=== PATIENT | male | born 1995 | race Caucasian/White ===

== ENCOUNTER 2022-12-06 08:32 | Outpatient (CLI) | payer OTHER, SELFPAY ==
--- NOTE | 2022-12-06 08:55 | MR_ITS ---
WS: [id number] MRI LUMBAR SPINE NONCONTRAST TECHNIQUE: Sagittal T1, T2 and STIR imaging. Axial T1 and T2 imaging. CLINICAL INFORMATION: RIGHT LUMBAR PAIN COMPARISON: None. FINDINGS: Mild lumbar curve. No acute compression. No high-grade central canal stenosis. Reversal normal cervic al lordosis. Mild central canal stenosis in the cervical spine road crossing guard imaging at C5-C7 with tiny disc protrusions. L1-L2: Mild facet arthropathy. Spinal canal and foramen are patent. L2-L3: Minimal annular bulging. Mild facet arthropathy. Spinal canal and foramen are patent. L3-L4: Mild annular bulging. Mild facet arthropathy. Mild LEFT and no RIGHT foraminal narrowing. L4-L5: Mild annular bulging with slight narrowing of the RIGHT subarticular recess. Foramen are paten t. Mild facet arthropathy. L5-S1: Mild annular bulging with slight contact of the traversing S1 nerve roots. Spinal canal and fo ramen are patent. Mild facet arthropathy. Visualized pelvic bony structures: Normal. Paravertebral soft tissues: Normal. MR/MR lumbar spine wo con* [id number] IMPRESSION: 1. Mild lumbar curve. No acute compression. No high-grade central canal stenos is. 2. Mild annular bulging L4-L5 with slight impingement RIGHT subarticular reces s and traversing RIGHT L5 nerve root. Recommend correlation with RIGHT L5 nerve root symptoms. 3. Mild annular bulging L5-S1 with slight contact of the traversing RIGHT grea ter than LEFT S1 nerve roots. 4. Mild LEFT L3-L4 foraminal narrowing. 5. Mild facet arthropathy L3-L5.
== END 2022-12-06 08:33 | disposition home or self-care (01) ==
PROVIDERS: PCP Family Medicine; Visit Provider Physical Medicine & Rehabilitation
DX: M47.896 Other spondylosis, lumbar region (principal); M51.27 Other intervertebral disc displacement, lumbosacral region
CPT/HCPCS: 72148

== ENCOUNTER 2024-05-03 02:53 | Emergency (ER) | payer SELFPAY ==
[2024-05-03] VITALS (7 sets, daily range): BP systolic 112–128; BP diastolic 58–71; PULSE 77–92; RESP 16–18; TEMP 36.9; O2SAT 97–100; BMI 25.1
--- NOTE | 2024-05-03 03:04 | USR_ITS ---
PROCEDURE INFORMATION: Exam: US Scrotum and US Duplex Artery and Vein, Scrotum, Complete Exam date and time: 05/03/2024 4:13 AM Age: 29 years old Clinical indication: Scrotum pain; Additional info: Testicle pain. History of epididymitis recently, on antibiotics for 2 weeks. Increasing pain over the last day. TECHNIQUE: Imaging protocol: Real-time ultrasound of the scrotum. Real-time duplex ultrasound scan of the arterial and venous flow of the scrotum with B-mode, color Doppler flow and spectral waveform analysis. Complete exam. Duplex exam was performed to evaluate for torsion and other vascular conditions. COMPARISON: No relevant prior studies available. FINDINGS: Right: The right testicle measures 41 x 26 x 27 mm, estimated volume 14.9 cc. No visible intratesticular mass. Duplex Doppler evaluation, with color flow and spectral waveform analysis, demonstrates intratesticular arterial and venous blood flow. Resistance index in the right testicle is 0.58. The right epididymis is normal in size and appearance. There is no significant right scrotal fluid. Left: The left testicle measures 37 x 23 x 26 mm, estimated volume 11.6 cc. No visible intratesticular mass. Duplex Doppler evaluation, with color flow and spectral waveform analysis, demonstrates intratesticular arterial and venous blood flow. Resistance index in the left testicle is 0.42. Possibly some thickening of the wall of the left epididymis. However, overall of the left epididymis does not appear significantly enlarged. The findings are nonspecific, but could represent sequela of recent epididymitis. There is no significantly increased blood flow to strongly suggest active epididymitis at this time. Clinical correlation and appropriate follow-up recommended. There is a small amount of somewhat echogenic left scrotal fluid. US/US scrotum [id number] IMPRESSION: 1. No evidence for torsion by Doppler ultrasound. 2. Appearance of the left epididymis which may be related to sequela of recent epididymitis. No current sonographic findings to strongly suggest active epididymitis, see above discussion. 3. Small left hydrocele. 4. Other details discussed above.
--- NOTE | 2024-05-03 03:06 | W.ED.MALEGU ---
HPI - Male Genitourinary General: Chief complaint: Urogenital-Male Stated complaint: severe left testicle pain Time Seen by Provider: 05/03/24 02:54 Source: patient Mode of arrival: ambulatory Limitations: no limitations History of Present Illness: 29-year-old male states he has had left testicle pain he states he was diagnosed with epididymitis 2 weeks ago he was placed on Bactrim states is improving he started having pain again tonight in his left testicle states is a sharp pain rates it a 7 out of 10 denies any vomiting or diarrhea has had some slight dysuria Associated symptoms: Deny dysuria, nausea or vomiting Related Data Previous Rx's Medication Instructions Recorded methocarbamol 750 mg tablet 750 mg PO Q8H PRN back pain #10 10/13/22 tabs doxycycline hyclate 100 mg tablet 100 mg PO BID 7 days #14 tabs 05/03/24 hydrocodone 5 mg-acetaminophen 325 1 tab PO Q6H PRN pain #14 tabs 05/03/24 mg tablet Allergies Allergy/AdvReac Type Severity Reaction Status Date / Time amoxicillin Allergy Unknown Verified 05/03/24 03:06 Penicillins Allergy Unknown Verified 05/03/24 03:06 tramadol Allergy ALGY-Rash Verified 05/03/24 03:06 Review of Systems Const: Denies: fever(s), chills, body aches or change in appetite ENMT: Denies: throat pain or dental pain Card: Denies: chest pain Resp: Denies: dyspnea GI: Denies: abdominal pain, nausea, vomiting or diarrhea : Reports: testicular pain; Denies: dysuria Musc: Denies: neck pain or back pain Skin/Breast: Denies: rash Neuro: Denies: headache(s) Physical Exam Const: COMMON NORMALS: no acute distress, patient oriented x3 and healthy appearing HENMT: COMMON NORMALS: normocephalic and atraumatic HEAD & SCALP: normocephalic and atraumatic Eye: COMMON NORMALS: conjunctivae normal CONJUNCTIVA: Yes conjunctivae normal Neck/C-Spine: COMMON NORMALS: full ROM and supple Chest: COMMONS NORMALS: normal inspection of the chest Resp: COMMON NORMALS: normal respiratory effort Cardio: COMMON NORMALS: regular rate RATE: regular rate GI: COMMON NORMALS: Normal to inspection, nondistended, normoactive bowel sounds present, Soft to palpation, non-tender and no masses PALPATION: Yes Soft to palpation : OTHER: Tenderness noted in left testicle no signs of torsion Extremity: COMMON NORMALS: normal to inspection and full ROM Neuro: COMMON NORMALS: patient oriented x3, moves all extremities and no focal motor deficits Psych: COMMON NORMALS: mental status grossly normal, Normal thought process present and cooperative THOUGHT PROCESS: Normal thought process present Skin: COMMON NORMALS: no rashes or lesions noted and no wounds GENERAL SKIN EXAM: no rashes or lesions noted Course Vital Signs: Vital signs: Vital Signs Temperature 98.5 F 05/03/24 02:58 Pulse Rate 92 05/03/24 04:43 Respiratory Rate 16 05/03/24 03:53 Blood Pressure 126/68 05/03/24 04:43 Pulse Oximetry 99 05/03/24 04:43 Oxygen Delivery Me thod Room Air 05/03/24 04:43 MDM - Male Medical Decision Making Patient presents for left testicle pain ultrasound showed a hydrocele like thickening epididymis we will start him on doxycycline and pain meds he is to follow-up with urology return if worsening. Medical Records I reviewed the patient's medical records. Lab Data I reviewed the patient's lab results. Laboratory Results Urine Color Yellow (Yellow) 05/03/24 03:04 Urine Appearance Clear (CLEAR) 05/03/24 03:04 Urine pH 5.5 (5-7) 05/03/24 03:04 Ur Specific [place] 1.003 (1.005-1.030) L 05/03/24 03:04 Urine Protein Negative (Negative) 05/03/24 03:04 Urine Glucose (UA) Negative (Normal) 05/03/24 03:04 Urine Ketones Negative (Negative) 05/03/24 03:04 Urine Blood Negative (Negative) 05/03/24 03:04 Urine Nitrate Negative (Negative) 05/03/24 03:04 Urine Bilirubin Negative (Negative) 05/03/24 03:04 Urine Urobilinogen 0.2 mg/dL (Negative) 05/03/24 03:04 Ur Leukocyte Esterase Trace (Negative) A 05/03/24 03:04 Urine RBC 0-2 /hpf (0-2) 05/03/24 03:04 Urine WBC 0-5 /hpf (0-5) 05/03/24 03:04 Ur Squamous Epith Cells 0-5 /hpf (0-5) 05/03/24 03:04 Amorphous Sediment Not Reportable 05/03/24 03:04 Urine Bacteria None seen /hpf (NONE) 05/03/24 03:04 Hyaline Casts 0-4 /lpf H 05/03/24 03:04 All radiology interpretation(s) finalized by discharge Discharge Plan Discharge Patient Disposition: Home Clinical Impression: Left testicular pain, Hydrocele Condition: Stable Prescriptions: New hydrocodone-acetaminophen 5-325 mg tablet 1 tab PO Q6H PRN (Reason: pain) Qty: 14 0RF doxycycline hyclate 100 mg tablet 100 mg PO BID 7 Days Qty: 14 0RF No Action methocarbamol 750 mg tablet 750 mg PO Q8H PRN (Reason: back pain) Qty: 10 0RF Discharge Orders: Discharge ED (Routine); Ordered 05/03/24 Ordered By: Ying Loomis Discharge Diet: Advance as tolerated Discharge Activity: Resume usual activity Patient Instructions: Hydrocele, Testicle Pain (ED) Coding Level of Care Code ED Green Promotions Specialist for Kingsley Evangelista
[2024-05-03 03:12] LABS: Bilirubin Urine Negative (Negative); Blood Urine Negative (Negative); Glucose Urine UA Negative (Normal); Ketones Urine Negative (Negative); Leukocyte Esterase Urine Trace (Negative); Nitrate Urine Negative (Negative); Protein Urine Negative (Negative); Specific Gravity, Urine 1.003 (1.005-1.030); Urine Appearance Clear (CLEAR); Urine Color Yellow (Yellow); Urobilinogen Urine 0.2 mg/dL (Negative); pH Urine 5.5 (5-7)
[2024-05-03] MEDS: HYDROcodone-acetaminophen 7.5-325 mg Tablet 1 TAB PO (03:16)
[2024-05-03 03:17] LABS: Add Urine Microscopic? YES; Bacteria Urine None Seen /hpf; Hyaline Casts Urine 0-4 /lpf; RBC Urine 0-2 /hpf (0-2); Squamous Epithelial Cell Urine 0-5 /hpf (0-5); WBC Urine 0-5 /hpf (0-5)
== END 2024-05-03 05:16 | disposition home or self-care (01) ==
PROVIDERS: Emergency Provider Emergency Medicine
DX: N50.812 Left testicular pain (principal); N43.3 Hydrocele, unspecified
CPT/HCPCS: 76870; 81001; 99284

== ENCOUNTER 2024-10-07 19:33 | Emergency (ER) | payer SELFPAY ==
[2024-10-07 19:34] VITALS: BP 113/74; PULSE 95; RESP 18; TEMP 36.8; O2SAT 99; BMI 21.2
--- NOTE | 2024-10-07 19:45 | ECG_ITS ---
[facility] Test Date: 2024-10-07 Pat Name: Luis Leach Department: Room: Gender: Male Database Marketing Specialist: : 1995 Requested By: Cruz Olguin Order Number: [id number] Reading MD: Measurements Intervals [place] Rate: 87 P: 67 [place]: 147 QRS: 87 QRSD: 109 T: 58 QT: 344 QTc: 416 Interpretive Statements SINUS RHYTHM WITH MARKED SINUS ARRHYTHMIA INTERPRETATION BASED ON A DEFAULT AGE OF 40 YEARS No previous ECG available for comparison [email or web address] [id number]
[2024-10-07 20:13] LABS: Basophils # 0.1 10^3/uL (0.0-0.1); Basophils % 0.5 %; Eosinophils # 0.2 10^3/uL (0.0-0.8); Eosinophils % 1.8 %; Hematocrit 46.9 % (37-53); Lymphocytes # 3.7 10^3/uL (0.8-4.8); Lymphocytes % 32.6 %; Mean Corpuscular HGB Conc 34.1 g/dL (30-55); Mean Corpuscular Hemoglobin 31.4 pg (27-33); Mean Platelet Volume 10.3 fL (7.4-10.4); Monocytes # 0.8 10^3/uL (0.2-0.9); Monocytes % 6.7 %; Neutrophils # 6.62 10^3/uL (1.8-7.7); Neutrophils % 58.1 %; Nucleated Red Blood Cells % 0 %; Platelet Count 236 10^3/cmm (157-399); Red Cell Distribution Width 12.2 % (12.1-15.1); White Blood Count 11.38 10^3/uL (3.29-11.43)
[2024-10-07] MEDS: sodium chloride 0.9% 1,000 ML 999 ML IV (20:14)
--- NOTE | 2024-10-07 20:14 | ED_ITS ---
HPI - Anxiety 2 General: Chief Complaint: Anxiety Stated Complaint: Anxiety Time Seen by Provider: 10/07/24 19:43 Source: patient Mode of arrival: ambulatory Limitations: no limitations History of Present Illness: Patient is a 29 y/o Male with no pertinent past medical hx who presents to the ED with complaints of anxiety for the past few weeks. Patient states he has been under a great amount of stress, which includes separation from his girlfriend, daughter recently undergoing surgery, and his ex-girlfriend having issues with DWI and continuing to drive around his daughter. He states that for weeks he has not been eating or drinking, commenting that he has only had 2 corn dogs this week. Also notes that he has not slept for the past few days. Stating he just wants something to relieve this at this time. He is denying any suicidal homicidal ideations, but does note that he has been quite depressed. He does not see a regular doctor or take any regular medications. He notes that anxiety has caused him to have constant chest pain and lower back pain, tremors, and weakness. Also comments that he has had very dark urine, and it takes a great deal of effort just to drink water. He has never been diagnosed with anxiety and does not take anything for anxiety. MD complaint: anxiety Onset (ago): week(s) Symptoms: chest pain, palpitations, sense of impending doom and muscle cramps Severity: severe Quality: constant and worsening History of similar episodes: No Provoking factors: emotional stress Associated symptoms: Deny chest pain, chills, fever(s), headache(s), nausea, palpitations or vomiting Related Data Previous Rx's ?Medication ?Instructions ?Recorded methocarbamol 750 mg tablet 750 mg PO Q8H PRN back radha n #10 10/13/22 tabs hydrocodone 5 mg-acetaminophen 325 1 tab PO Q6H PRN pa in #14 tabs 05/03/ mg tablet propranolol 20 mg tablet 20 mg PO Q8H #60 tabs Allergies Allergy/AdvReac Type Severity Reaction Status Date / Time amoxicillin Allergy Unknown Verified 10/07/24 19:42 Penicillins Allergy Unknown Verified 10/07/24 19:42 tramadol Allergy ALGY-Rash Verified 10/07/24 19:42 Review of Systems 2 General: Reports: 10 or more systems reviewed and unremarkable except in HPI and below Const: Denies: fever(s), chills or fatigue Eyes: Denies: change in vision ENMT: Denies: throat pain, ear or mastoid pain or nasal discharge Card: Denies: chest pain, palpitations, swelling of feet/ankles or lightheadedness Resp: Denies: dyspnea, productive cough or wheezing GI: Denies: abdominal pain, nausea, vomiting, diarrhea or constipation : Denies: flank pain, difficulty urinating, dysuria or urinary frequency Musc: Denies: neck pain, back pain or joint pain Skin/Breast: Denies: rash Neuro: Denies: headache(s), numbness in extremities or weakness in extremities Psych: Reports: anxiety and depression; Denies: visual hallucinations, auditory hallucinations, tactile hallucinations, suicidal ideation or homicidal ideation Physical Exam 2 Const: COMMON NORMALS: patient oriented x3, healthy appearing and alert G ENERAL APPEARANCE: anxious ORIENTATION/CONSCIOUSNESS: Yes awake OTHER: Tremulous HENMT: COMMON NORMALS: normocephalic and atraumatic HEAD & SCALP: n ormocephalic and atraumatic Eye: COMMON NORMALS: Equal, round and reactive pupils present, EOMs intact bilaterally and conjunctivae normal CONJUNCTIVA: Yes conjunctivae normal P UPIL: Yes Equal, round and reactive pupils present Neck/C-Spine: COMMON NORMALS: full ROM Resp: COMMON NORMALS: normal respiratory effort, No retractions, No use of accessory muscles and clear to auscultation bilaterally AUSCULTATION: clear to auscultation bilaterally Cardio: COMMON NORMALS: regular rhythm, S1 normal heart sound present and S2 normal heart sound present RATE: tachycardic RHYTHM: regular rhythm H EART SOUNDS: S1 normal heart sound present and S2 normal heart sound present GI: COMMON NORMALS: Soft to palpation and non-tender PALPATION: Yes Soft to palpation Back/Pelvis: COMMON NORMALS: thoracic and lumbar spine normal to inspection, no thoracic nor lumbar tenderness and thoraco-lumbar ROM normal Extremity: COMMON NORMALS: normal to inspection and full ROM Neuro: COMMON NORMALS: patient oriented x3, moves all extremities, no focal motor deficits and no sensory deficits noted SENSORIUM/ORIENTATION: Yes alert Psych: COMMON NORMALS: Normal thought process present and speech normal A PPEARANCE: Yes grossly normal ATTITUDE: Yes calm ACTIVITY/MOTOR BEHAVIOR: Yes appropriate eye contact SPEECH: Yes normal speech MOOD & AFFECT: Yes depressed mood and Yes anxious THOUGHT PROCESS: Normal thought process present THOUGHT CONTENT: Yes Normal thought content present, No Suicidality present, No Homicidality present and No Hallucination(s) present A TTENTION/CONCENTRATION: Yes attention grossly intact MEMORY/COGNITION: Yes memory grossly intact Skin: COMMON NORMALS: no rashes or lesions noted GENERAL SKIN EXAM: no rashes or lesions noted Course 2 Vital Signs: Vital signs: Vital Signs Temperature 98.3 F 10/07/24 19:34 Pulse Rate 78 10/07/24 22:38 Respiratory Rate 18 10/07/24 19:34 Blood Pressure 125/87 10/07/24 22:38 Pulse Oximetry 100 10/07/24 22:38 Oxygen Delivery Me thod Room Air 10/07/24 22:38 MDM - Anxiety Medical Decision Making Patient presenting complaining of anxiety, has been doing with a lot of stress recently. He was not suicidal homicidal with me. Labs were negative. He was given Ativan and hydroxyzine here, initially states that he was just feeling more shaky but does note later he was starting to feel better. Was also given fluids, due to there being concerns for dehydration as he states he is essentially not been eating or drinking anything the past 2 days. Also noted limited sleep. Will also give him Toradol for back pain. I spoke with Dr. Mcconnell in regards to his case, recommend propranolol at this time and outpatient follow-up with crisis center. I discussed this plan with the patient, he agrees with restarting propranolol here and prescriptions in the pharmacy. Told to return if he does have thoughts of suicidal ideations or homicidal ideations, or hallucinations. Stable for discharge at this time. Lab Data 10/07/24 20:07 10/07/24 20:07 Laboratory Results WBC 11.38 10^3/uL (3.29-11.43) 10/07/24 20:07 RBC 5.10 10^6/uL (3.85-5.65) 10/07/24 20:07 Hgb 16.00 g/dL (11.27-16.99) 10/07/24 20:07 Hct 46.9 % (37-53) 10/07/24 20:07 MCV 92.0 fl (82-101) 10/07/24 20:07 MCH 31.4 pg (27-33) 10/07/24 20:07 MCHC 34.1 g/dL (30-55) 10/07/24 20:07 RDW 12.2 % (12.1-15.1) 10/07/24 20:07 Plt Count 236 10^3/cmm (157-399) 10/07/24 20:07 MPV 10.3 fL (7.4-10.4) 10/07/24 20:07 Neut % (Auto) 58.1 % 10/07/24 20:07 Lymph % (Auto) 32.6 % 10/07/24 20:07 [place] % (Auto) 6.7 % 10/07/24 20:07 Eos % (Auto) 1.8 % 10/07/24 20:07 Baso % (Auto) 0.5 % 10/07/24 20:07 Neut # (Auto) 6.62 10^3/uL (1.8-7.7) 10/07/24 20:07 Lymph # (Auto) 3.7 10^3/uL (0.8-4.8) 10/07/24 20:07 [place] # (Auto) 0.8 10^3/uL (0.2-0.9) 10/07/24 20:07 Eos # (Auto) 0.2 10^3/uL (0.0-0.8) 10/07/24 20:07 Baso # (Auto) 0.1 10^3/uL (0.0-0.1) 10/07/24 20:07 Nucleated RBC % (auto) 0 % 10/07/24 20:07 Nucleated RBCs # 0.0 /100WBC 10/07/24 20:07 Sodium 141 mmol/L (136-145) 10/07/24 20:07 Potassium 3.7 mmol/L (3.5-5.1) 10/07/24 20:07 Chloride 102 mmol/L (98-107) 10/07/24 20:07 Carbon Dioxide 26 mmol/L (22-29) 10/07/24 20:07 Anion Gap 16.7 (5-19) 10/07/24 20:07 BUN 4 mg/dL (6-20) L 10/07/24 20:07 Creatinine 0.8 mg/dL (0.7-1.2) 10/07/24 20:07 GFR Calculation 112.8 mL/min (90-130) 10/07/24 20:07 Glucose 88 mg/dL (65-115) 10/07/24 20:07 Calculated Osmolality 288 mOsm/kg (285-295) 10/07/24 20:07 Calcium 9.2 mg/dL (8.5-10.5) 10/07/24 20:07 Total Bilirubin 0.3 mg/dL (0.15-1.2) 10/07/24 20:07 AST 11 U/L (0-40) 10/07/24 20:07 ALT 11 U/L (0-41) 10/07/24 20:07 Alkaline Phosphatase 92 U/L (40-130) 10/07/24 20:07 Total Protein 7.0 g/dL (6.6-8.7) 10/07/24 20:07 Albumin 4.3 g/dL (3.5-5.2) 10/07/24 20:07 Globulin 2.7 g/dL (1.3-4.6) 10/07/24 20:07 Urine Color Yellow (Yellow) 10/07/24 20:46 Urine Appearance Clear (CLEAR) 10/07/24 20:46 Urine pH 6.5 (5-7) 10/07/24 20:46 Ur Specific [place] 1.003 (1.005-1.030) L 10/07/24 20:46 Urine Protein Negative (Negative) 10/07/24 20:46 Urine Glucose (UA) Negative (Normal) 10/07/24 20:46 Urine Ketones Negative (Negative) 10/07/24 20:46 Urine Blood Negative (Negative) 10/07/24 20:46 Urine Nitrate Negative (Negative) 10/07/24 20:46 Urine Bilirubin Negative (Negative) 10/07/24 20:46 Urine Urobilinogen 0.2 mg/dL (Negative) 10/07/24 20:46 Ur Leukocyte Esterase 2+ (Negative) A 10/07/24 20:46 Urine RBC 0-2 /hpf (0-2) 10/07/24 20:46 Urine WBC 6-10 /hpf (0-5) 10/07/24 20:46 Ur Squamous Epith Cells 0-5 /hpf (0-5) 10/07/24 20:46 Amorphous Sediment Not Reportable 10/07/24 20:46 Urine Bacteria None seen /hpf (NONE) 10/07/24 20:46 Hyaline Casts 0-4 /lpf H 10/07/24 20:46 No radiology studies performed this visit Discharge Plan Discharge Patient Disposition: Home Clinical Impression: Acute anxiety Condition: Stable Prescriptions: New propranolol 20 mg tablet 20 mg PO Q8H Qty: 60 0RF No Action methocarbamol 750 mg tablet 750 mg PO Q8H PRN (Reason: back pain) Qty: 10 0RF hydrocodone-acetaminophen 5-325 mg tablet 1 tab PO Q6H PRN (Reason: pain) Qty: 14 0RF Discharge Orders: Discharge ED (Routine); Ordered 10/07/24 Ordered By: Cruz Pritchett Patient Instructions: Depression (ED), Anxiety (ED) Activity Restrictions/Additional Instructions: Follow-up with crisis center. You may call , or present to the crisis center at [address] [facility]. Take propranolol as prescribed. Please return with any suicidal thoughts, hallucinations, or any other major concerns. Print Language: Hungarian Coding Level of Care Code ED Mobile Architect for Kingsley Evangelista
[2024-10-07] MEDS: LORazepam 2 mg/mL INJ 1 mL IVP (20:15)
[2024-10-07] MEDS: hyDROXYzine 25 mg Capsule 50 MG PO (20:15)
[2024-10-07 20:22] VITALS: PULSE 92; O2SAT 100
[2024-10-07 20:38] LABS: Alanine Aminotransferase 11 U/L (0-41); Albumin Level 4.3 g/dL (3.5-5.2); Alkaline Phosphatase 92 U/L (40-130); Anion Gap 16.7 (5-19); Aspartate Amino Transferase 11 U/L (0-40); Blood Urea Nitrogen 4 mg/dL (6-20); Calcium 9.2 mg/dL (8.5-10.5); Carbon Dioxide 26 mmol/L (22-29); Chloride 102 mmol/L (98-107); Creatinine Clr Calc Pharmacy 137.6852; Globulin 2.7 g/dL (1.3-4.6); Glomerular Filtration Rate 112.8 mL/min (90-130); Glucose 88 mg/dL (65-115); Osmolality Calculated 288 mOsm/kg (285-295); Potassium 3.7 mmol/L (3.5-5.1); Sodium 141 mmol/L (136-145); Total Bilirubin 0.3 mg/dL (0.15-1.2)
[2024-10-07 20:54] LABS: Bilirubin Urine Negative (Negative); Blood Urine Negative (Negative); Glucose Urine UA Negative (Normal); Ketones Urine Negative (Negative); Leukocyte Esterase Urine 2+ (Negative); Nitrate Urine Negative (Negative); Protein Urine Negative (Negative); Specific Gravity, Urine 1.003 (1.005-1.030); Urine Appearance Clear (CLEAR); Urine Color Yellow (Yellow); Urobilinogen Urine 0.2 mg/dL (Negative); pH Urine 6.5 (5-7)
[2024-10-07 20:57] LABS: Add Urine Microscopic? YES; Bacteria Urine None Seen /hpf; Hyaline Casts Urine 0-4 /lpf; RBC Urine 0-2 /hpf (0-2); Squamous Epithelial Cell Urine 0-5 /hpf (0-5)
[2024-10-07 21:00] VITALS: PULSE 89; O2SAT 98
[2024-10-07] MEDS: ketorolac 30 mg/mL INJ IVP (21:26)
[2024-10-07] MEDS: propranolol 20 mg Tablet PO (21:29)
[2024-10-07 21:36] VITALS: BP 128/76; PULSE 108; O2SAT 100
--- NOTE | 2024-10-07 21:56 | PC.NURSE ---
pt given sandwich pudding and coke. has not had any emesis.
[2024-10-07 22:00] VITALS: PULSE 91; O2SAT 99
[2024-10-07 22:38] VITALS: BP 125/87; PULSE 78; O2SAT 100
== END 2024-10-07 22:57 | disposition home or self-care (01) ==
PROVIDERS: Emergency Provider Physician Assistant
DX: F41.8 Other specified anxiety disorders (principal)
CPT/HCPCS: 80053; 81001; 85025; 93005; 96361; 96374; 96375; 99284; J1885; J2060; J7030; J9999

== ENCOUNTER 2024-10-08 01:23 | Emergency (ER) | payer SELFPAY ==
[2024-10-08 01:25] VITALS: BP 113/73; PULSE 75; RESP 18; TEMP 36.8; O2SAT 100; BMI 21.2
[2024-10-08 01:38] VITALS: BP 102/69; PULSE 83; RESP 28; O2SAT 99
--- NOTE | 2024-10-08 02:36 | W.ED.GENADLT ---
HPI - General Adult General: Chief complaint: General Medical Stated complaint: allergic rxn Time Seen by Provider: 10/08/24 01:28 History of Present Illness: Patient is a 29-year-old male who presents to the emergency department for what appears to be a panic attack. He states that he is going through hard times with his girlfriend and has many stressors in his life. They makes him feel nauseated, lightheaded, and next hard to concentrate. As he talks about he is tearing up and seems that he has lost a lot of hope. He has never been diagnosed with depression but as we discussed symptoms he feels this might be what is happening. He has trouble sleeping, he is eating less, feels nauseated frequently, and sometimes feels a heaviness in his chest. He was already seen earlier today for the same constellation of symptoms and all test were within normal limits. Related Data Previous Rx's ?Medication ?Instructions ?Recorded methocarbamol 750 mg tablet 750 mg PO Q8H PRN back pain #10 10/13/22 tabs hydrocodone 5 mg-acetaminophen 325 1 tab PO Q6H PRN pain #14 tabs 05/03/ mg tablet propranolol 20 mg tablet 20 mg PO Q8H #60 tabs 10/07/24 Allergies Allergy/AdvReac Type Severity Reaction Status Date / Time amoxicillin Allergy Unknown Verified 10/08/24 01:30 Penicillins Allergy Unknown Verified 10/08/24 01:30 tramadol Allergy ALGY-Rash Verified 10/08/24 01:30 Physical Exam Const: COMMON NORMALS: no acute distress, patient oriented x3 and alert HENMT: COMMON NORMALS: normocephalic and atraumatic HEAD & SCALP: normocephalic and atraumatic Eye: COMMON NORMALS: Equal, round and reactive pupils present, EOMs intact bilaterally and no scleral icterus PUPIL: Yes Equal, round and reactive pupils present Resp: COMMON NORMALS: normal respiratory effort and No retractions Cardio: COMMON NORMALS: regular rate, regular rhythm and No murmurs present (Cardio) RATE: regular rate RHYTHM: regular rhythm GI: COMMON NORMALS: Normal to inspection, nondistended, normoactive bowel sounds present, Soft to palpation and non-tender PALPATION: Yes Soft to palpation Neuro: COMMON NORMALS: patient oriented x3 SENSORIUM/ORIENTATION: Yes alert Psych: OTHER: Dysphoric, tearful, denies SI or HI. No active hallucinations or delusions. Skin: COMMON NORMALS: no rashes or lesions noted GENERAL SKIN EXAM: no rashes or lesions noted Course Vital Signs: Vital signs: Vital Signs Temperature 98.2 F 10/08/24 01:25 Pulse Rate 83 10/08/24 01:38 Respiratory Rate 28 H 10/08/24 01:38 Blood Pressure 102/69 10/08/24 01:38 Pulse Oximetry 99 10/08/24 01:38 Oxygen Delivery Me thod Room Air 10/08/24 01:25 MDM - General Adult Medical Decision Making Patient appears to be having panic attacks and has many symptoms consistent with major depressive disorder. Initially, he stated that he would like to be hospitalized and stabilized and speak with psychiatry to consider initiating medication. When he found out that he would not be able to keep his cell phone he decided against this and will be discharged. He has neither homicidal nor suicidal and I do not feel he is a immediate threat to himself or anyone else at this he will be discharged knowing that he can always return should he change his mind. No radiology studies performed this visit Discharge Plan Discharge Patient Disposition: Home Clinical Impression: MDD (major depressive disorder), single episode, Acute anxiety Condition: Stable Prescriptions: No Action methocarbamol 750 mg tablet 750 mg PO Q8H PRN (Reason: back pain) Qty: 10 0RF propranolol 20 mg tablet 20 mg PO Q8H Qty: 60 0RF hydrocodone-acetaminophen 5-325 mg tablet 1 tab PO Q6H PRN (Reason: pain) Qty: 14 0RF Discharge Orders: Discharge ED (Routine); Ordered 10/08/24 Ordered By: Eugenio Mensah Patient Instructions: Panic Attack (ED) Print Language: Lao Coding Level of Care Code ED Handle Rounder Operator for Kingsley Evangelista
--- OUTSIDE RECORDS SUMMARY | 2024-10-08 02:38 | XMS_ITS | Patient Health Record ---
Author Organization [facility] Address [address] [place] [address] Care Team Providers Care Book Canvasser Name Role Phone Thang Mejias Unavailable [phone] Reason For Referral No Information Plan Of Treatment No Information
--- OUTSIDE RECORDS SUMMARY | 2024-10-08 02:38 | XMS_ITS ---
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 * Medical History:? Objective: * Vitals:? Assessment: Plan: * Treatment: * Billing Information: * Visit Code:? * Procedure Codes:? * Electronic signature of Mara Mejias MD on 10/08/2024 at 02:38 AM CDT Sign off status: Pending * Provider:?Thang Mejias MD Date:?04/11 Generated for Printi ng/Faxing/eTransmitting on:?10/08/2024 02:38 AM CDT
[2024-10-08 02:43] VITALS: BP 107/61; PULSE 92; RESP 10; O2SAT 96
== END 2024-10-08 02:45 | disposition home or self-care (01) ==
LOC: ER 01:59 → NP 02:25 → ER 02:37
PROVIDERS: Emergency Provider Student in an Organized Health Care Education/Training Program; Visit Provider Psychiatry & Neurology Psychiatry
DX: F32.9 Major depressive disorder, single episode, unspecified (principal); F41.8 Other specified anxiety disorders
CPT/HCPCS: 99283

== ENCOUNTER 2024-10-21 21:40 | Observation (INO) | payer SELFPAY ==
[2024-10-21 21:43] VITALS: BP 115/76; PULSE 75; RESP 16; TEMP 36.7; O2SAT 100; BMI 21.2
--- NOTE | 2024-10-21 21:45 | PC.NURSE ---
Pt ambulated from registration to triage room then from triage room to treatment room with even steady gate
--- NOTE | 2024-10-21 22:07 | CTR_ITS ---
PROCEDURE INFORMATION: Exam: CTA Head With Contrast, Arteriography Exam date and time: 10/21/2024 10:17 PM Age: 29 years old Clinical indication: Stroke-like symptoms; Lt upper extremity and lt lower extremity weakness TECHNIQUE: Imaging protocol: Computed tomographic angiography of the head with contrast. Exam focused on the arteries. 3D rendering (Not supervised by radiologist): MIP and/or 3D reconstructed images were created by the technologist. Radiation optimization: All CT scans at this facility use at least one of these dose optimization techniques: automated exposure control; mA and/or kV adjustment per patient size (includes targeted exams where dose is matched to clinical indication); or iterative reconstruction. Contrast material: OMNI 350; Contrast volume: 100 ml; Contrast route: INTRAVENOUS (IV); COMPARISON: CT head thrombolytic [id number] 10/21/2024 10:14 PM RADIATION DOSE METRICS: Total DLP (mGy-cm): 569.3 FINDINGS: ANTERIOR CIRCULATION: Right internal carotid artery: Intracranial segment is patent with no significant stenosis. No aneurysm. Right middle cerebral artery: No occlusion or significant stenosis. No aneurysm. Right anterior cerebral artery: No occlusion or significant stenosis. No aneurysm. Left internal carotid artery: Intracranial segment is patent with no significant stenosis. No aneurysm. Left middle cerebral artery: No occlusion or significant stenosis. No aneurysm. Left anterior cerebral artery: No occlusion or significant stenosis. No aneurysm. POSTERIOR CIRCULATION: Right vertebral artery: No occlusion or significant stenosis. No aneurysm. Left vertebral artery: No occlusion or significant stenosis. No aneurysm. Basilar artery: No occlusion or significant stenosis. No aneurysm. Right posterior cerebral artery: No occlusion or significant stenosis. No aneurysm. Left posterior cerebral artery: No occlusion or significant stenosis. No aneurysm. Brain: There is no evidence of acute intracranial hemorrhage, subacute or chronic ischemic infarct, acute intra-axial or extra-axial fluid collection, mass effect, or midline shift. Intracranial venous sinuses are patent. Cerebral ventricles: No ventriculomegaly. Bones/joints: Unremarkable. No acute fracture. Soft tissues: Unremarkable. PROCEDURE INFORMATION: Exam: CTA Neck With Contrast Exam date and time: 10/21/2024 10:17 PM Age: 29 years old Clinical indication: Stroke-like symptoms; Lt upper extremity and lt lower extremity weakness TECHNIQUE: Imaging protocol: Computed tomographic angiography of the neck with contrast. Exam focused on the cervical segments of the vasculature. 3D rendering (Not supervised by radiologist): MIP and/or 3D reconstructed images were created by the technologist. Radiation optimization: All CT scans at this facility use at least one of these dose optimization techniques: automated exposure control; mA and/or kV adjustment per patient size (includes targeted exams where dose is matched to clinical indication); or iterative reconstruction. Contrast material: OMNI 350; Contrast volume: 100 ml; Contrast route: INTRAVENOUS (IV); COMPARISON: CT head thrombolytic [id number] 10/21/2024 10:14 PM RADIATION DOSE METRICS: Total DLP (mGy-cm): 568.3 FINDINGS: Right common carotid artery: No stenosis. No dissection or occlusion. Right internal carotid artery: No stenosis of the extracranial segment. No dissection or occlusion. Right external carotid artery: No occlusion or stenosis of the origin. Left common carotid artery: No stenosis. No dissection or occlusion. Left internal carotid artery: No stenosis of the extracranial segment. No dissection or occlusion. Left external carotid artery: No occlusion or stenosis of the origin. Right vertebral artery: No stenosis. No dissection or occlusion. Left vertebral artery: No stenosis. No dissection or occlusion. Soft tissues: Normal. No significant soft tissue swelling. Bones/joints: No acute fracture. CT/CT angio headneck* [id number] IMPRESSION: 1. No acute intracranial findings. 2. No major intracranial artery aneurysm, stenosis or occlusion. 3. Intracranial venous sinuses are patent. IMPRESSION: No major neck artery laceration, dissection, stenosis, aneurysm, pseudoaneurysm or occlusion. REFERENCES: NASCET CRITERIA. The degree of stenosis in the cervical segment of the internal carotid artery is based on NASCET criteria. Normal is no stenosis. Mild is less than 50% stenosis. Moderate is 50-69% stenosis. Severe is 70% to 99% stenosis. Total occlusion is no detectable patent lumen.
--- NOTE | 2024-10-21 22:07 | XRR_ITS ---
PROCEDURE INFORMATION: Exam: XR Chest Exam date and time: 10/21/2024 10:20 PM Age: 29 years old Clinical indication: Other: Left sided weakness; Additional info: Stroke TECHNIQUE: Imaging protocol: Radiologic exam of the chest. Views: 1 view. COMPARISON: CR XR chest 1V [id number] 03/31/2018 12:01 AM FINDINGS: Lungs: No consolidation or pulmonary edema. Pleural spaces: No pleural effusion. No pneumothorax. Heart/Mediastinum: Cardiomediastinal silhouette is normal in size. Bones/joints: No acute fractures. XR/XR chest 1V portable [id number] IMPRESSION: No acute findings.
--- NOTE | 2024-10-21 22:07 | CTR_ITS ---
PROCEDURE INFORMATION: Exam: CT Head Without Contrast Exam date and time: 10/21/2024 10:14 PM Age: 29 years old Clinical indication: Stroke-like symptoms; RT upper extremity and RT lower extremity weakness; Additional info: Symptoms of acute stroke. Lkw 1430 TECHNIQUE: Imaging protocol: Computed tomography of the head without contrast. Radiation optimization: All CT scans at this facility use at least one of these dose optimization techniques: automated exposure control; mA and/or kV adjustment per patient size (includes targeted exams where dose is matched to clinical indication); or iterative reconstruction. Other technique: STROKE PROTOCOL was implemented. COMPARISON: No relevant prior studies available. RADIATION DOSE METRICS: Total DLP (mGy-cm): 1148 FINDINGS: Brain: No acute intracranial hemorrhage. No mass effect or midline shift. No acute extraaxial fluid collection. Unremarkable white matter. Cerebral ventricles: No ventriculomegaly. Paranasal sinuses: Partially visualized sinuses are unremarkable. No fluid levels. Mastoid air cells: Visualized mastoid air cells are well aerated. Bones: Unremarkable. No acute fracture. Soft tissues: Unremarkable. CT/CT head thrombolytic [id number] IMPRESSION: No acute intracranial findings. ASSESSMENT: ASPECTS ([place] Stroke Program Early CT Score) is 10.
[2024-10-21 22:11] LABS: Glucose Point of Care 98 mg/dL (70-110)
--- NOTE | 2024-10-21 22:11 | ECG_ITS ---
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
[2024-10-21 22:18] LABS: Basophils # 0.1 10^3/uL (0.0-0.1); Basophils % 0.7 %; Eosinophils # 0.3 10^3/uL (0.0-0.8); Eosinophils % 3.3 %; Hematocrit 45.5 % (37-53); Lymphocytes # 3.7 10^3/uL (0.8-4.8); Lymphocytes % 37.1 %; Mean Corpuscular HGB Conc 34.1 g/dL (30-55); Mean Corpuscular Hemoglobin 31.4 pg (27-33); Mean Corpuscular Volume 92.1 fl (82-101); Mean Platelet Volume 10.5 fL (7.4-10.4); Monocytes # 0.6 10^3/uL (0.2-0.9); Monocytes % 6.2 %; Neutrophils # 5.19 10^3/uL (1.8-7.7); Neutrophils % 52.5 %; Nucleated Red Blood Cells % 0 %; Platelet Count 236 10^3/cmm (157-399); Red Blood Count 4.94 10^6/uL (3.85-5.65); Red Cell Distribution Width 12.8 % (12.1-15.1); White Blood Count 9.89 10^3/uL (3.29-11.43)
[2024-10-21] MEDS: iohexol 350 mg/mL 500 mL Btl (per mL) IV (22:20)
[2024-10-21 22:33] LABS: INR 0.95 (0.8-1.2)
[2024-10-21 22:34] VITALS: BP 116/71; PULSE 75; RESP 14; O2SAT 98
[2024-10-21 22:34] LABS: Partial Thromboplastin Time 27.3 SECONDS (23.9-36.7)
[2024-10-21 22:38] LABS: Alanine Aminotransferase 13 U/L (0-41); Albumin Level 4.1 g/dL (3.5-5.2); Alkaline Phosphatase 104 U/L (40-130); Anion Gap 13.9 (5-19); Aspartate Amino Transferase 15 U/L (0-40); Blood Urea Nitrogen 9 mg/dL (6-20); Calcium 8.8 mg/dL (8.5-10.5); Carbon Dioxide 26 mmol/L (22-29); Chloride 103 mmol/L (98-107); Creatinine Clr Calc Pharmacy 137.6852; Globulin 2.6 g/dL (1.3-4.6); Glomerular Filtration Rate 112.8 mL/min (90-130); Glucose 98 mg/dL (65-115); Osmolality Calculated 287 mOsm/kg (285-295); Potassium 3.9 mmol/L (3.5-5.1); Sodium 139 mmol/L (136-145); Total Bilirubin 0.3 mg/dL (0.15-1.2); Total Protein 6.7 g/dL (6.6-8.7)
[2024-10-21 22:40] LABS: Alcohol Level < 10 mg/dL (0-10)
[2024-10-21 22:54] LABS: Bilirubin Urine Negative (Negative); Blood Urine Negative (Negative); Glucose Urine UA Negative (Normal); Ketones Urine Negative (Negative); Leukocyte Esterase Urine Negative (Negative); Nitrate Urine Negative (Negative); Protein Urine Negative (Negative); Specific Gravity, Urine 1.016 (1.005-1.030); Urine Appearance Clear (CLEAR); Urine Color Yellow (Yellow); Urobilinogen Urine 0.2 mg/dL (Negative); pH Urine 7.5 (5-7)
[2024-10-21 22:56] LABS: Add Urine Microscopic? YES; Bacteria Urine None Seen /hpf; RBC Urine 0-2 /hpf (0-2); Squamous Epithelial Cell Urine 0-5 /hpf (0-5); WBC Urine 0-5 /hpf (0-5)
[2024-10-21 23:00] VITALS: BP 110/62; PULSE 73; RESP 18; O2SAT 99
[2024-10-21 23:01] LABS: Amphetamines Screen Urine Negative (Negative); Barbiturates Screen Urine Negative (Negative); Benzodiazepines Screen Urine Negative (Negative); Cocaine Screen Urine Negative (Negative); Opiate Screen Urine Positive (Negative); PCP Screen Urine Negative (Negative); THC Screen Urine Negative (Negative)
--- NOTE | 2024-10-21 23:02 | ED_ITS ---
HPI - Neuro Symptoms/Deficit 2 General: Chief Complaint: Neuro Symptoms/Deficit Stated Complaint: Left Arm Tingling\Left Leg Numb Time Seen by Provider: 10/21/24 21:51 History of Present Illness: Patient is a pleasant 29-year-old male with history of anxiety, smoker, presented to the emergency room due to numbness and tingling to left upper and left lower extremity. This occurred at 2 PM. He first noted numbness to his distal left arm at 2 PM. This increased to proximal left thigh, predominantly laterally, and anterior. He denied any recent sickness, illness. He has not had any rash. He denies any head or back trauma. He is not on aspirin. He does not have history of stroke. Family history includes maternal uncle with history of stroke/IA. Unknown father side. Onset (ago): hour(s) (8) Last Observed Normal: 14:00 Location: left arm and left leg History of same: No Severity: mild Quality: numb and tingling Treatments Prior to Arrival: none Related Data Previous Rx's ?Medication ?Instructions ?Recorded methocarbamol 750 mg tablet 750 mg PO Q8H PRN back radha n #10 10/13/22 tabs hydrocodone 5 mg-acetaminophen 325 1 tab PO Q6H PRN pa in #14 tabs 05/03/ mg tablet propranolol 20 mg tablet 20 mg PO Q8H #60 tabs Allergies Allergy/AdvReac Type Severity Reaction Status Date / Time amoxicillin Allergy Unknown Verified 10/08/24 01:30 Penicillins Allergy Unknown Verified 10/08/24 01:30 tramadol Allergy ALGY-Rash Verified 10/08/24 01:30 [facility] ED 2 PFSH: Surgical History (Updated 10/22/24 @ 00:30 by Cornelia Bertrand MD) H/O local excision of skin lesion birthmark removed at the L. parietal lobe, above his L. ear. History of tonsillectomy and adenoidectomy H/O knee surgery L. knee surgery due to removal of a bone spur Family History (Updated 10/22/24 @ 00:26 by Cornelia Bertrand MD) Mother Heart disease Hypertension Social History (Updated 10/22/24 @ 00:34 by Cornelia Bertrand MD) Smoking and tobacco/nicotine status: current every day tobacco/nicotine user cigarettes Packs smoked per day: 1 Years cigarettes smoked: 10 [ Other cigarette details: Also vapes. ] Alcohol intake: never Substance/Drug Use: current Substance/Drug use type: Marijuana Other substance/drug use details: once every few months. NIH stroke score 2 NIHSS: Level Of Consciousness - 1a: 0 Level Of Consciousness Questions - 1b: Both Correct Level Of Consciousness Commands - 1c: Both Correct Best Gaze - 2: Normal Visual [place] - 3: No Visual Loss Facial Palsy - 4: N ormal Motor Arm Right - 5: No Drift Motor Arm Left - 5: Drift Motor Leg Right - 6: No Drift Motor Leg Left - 6: No Drift Limb Ataxia - 7: Absent Sensory - 8: Mild To Moderate Loss Best Language - 9: No Aphasia D ysarthia - 10: Normal Course 2 Consultations: Consultation #1: [id number] D/w Dr. Norman that recommended C T head, then CTA head and neck. Obs, consult, MR brain, lipid profile, ASA Consultation #2: Dr. Dr. Luz, hospitalist, will take on observation with continued request of Dr. Norman consulting Vital Signs: Vital signs: Vital Signs Temperature 98.0 F 10/21/24 21:43 Pulse Rate 66 10/22/24 00:00 Respiratory Rate 16 10/21/24 23:59 Blood Pressure 111/69 10/22/24 00:00 Pulse Oximetry 98 10/22/24 00:00 Oxygen Delivery Me thod Room Air 10/21/24 23:59 MDM - Neuro Symptoms/Deficit Medical Decision Making Patient is a 29-year-old gentleman with sensory changes to the left upper and lower extremities. He had an strength deficit in left upper extremity. NIH is 4. Discussed with neurologist, recommended observation MRI, lipid panel. Discussed with hospitalist, will admit for observation Differential Diagnosis Likely subarachnoid hemorrhage, peripheral neuropathy, cerebrovascular accident, multiple sclerosis and transient cerebral ischemia Lab Data 10/21/24 22:12 10/21/24 22:12 Radiology Impressions Chest X-Ray 10/21/24 22:07 IMPRESSION: No acute findings. Head CT 10/21/24 22:07 IMPRESSION: No acute intracranial findings. ASSESSMENT: ASPECTS ([place] Stroke Program Early CT Score) is 10. ADDENDUM: 10/21/24 1323 The patient's physician, Dr. Mensah was informed by phone by Dr. Arnold about the findings and recommendations on 10/21/2024 at 10:46 PM CDT. The ordering physician verbalized understanding. Head/Neck CTA 10/21/24 22:07 IMPRESSION: 1. No acute intracranial findings. 2. No major intracranial artery aneurysm, stenosis or occlusion. 3. Intracranial venous sinuses are patent. IMPRESSION: No major neck artery laceration, dissection, stenosis, aneurysm, pseudoaneurysm or occlusion. REFERENCES: NASCET CRITERIA. The degree of stenosis in the cervical segment of the internal carotid artery is based on NASCET criteria. Normal is no stenosis. Mild is less than 50% stenosis. Moderate is 50-69% stenosis. Severe is 70% to 99% stenosis. Total occlusion is no detectable patent lumen. ADDENDUM: 10/21/24 1044 The patient's physician, Dr. Mensah was informed by phone by Dr. Arnold about the findings and recommendations on 10/21/2024 at 10:46 PM CDT. The ordering physician verbalized understanding. Laboratory Results WBC 9.89 10^3/uL (3.29-11.43) 10/21/24 22:12 RBC 4.94 10^6/uL (3.85-5.65) 10/21/24 22:12 Hgb 15.50 g/dL (11.27-16.99) 10/21/24 22:12 Hct 45.5 % (37-53) 10/21/24 22:12 MCV 92.1 fl (82-101) 10/21/24 22:12 MCH 31.4 pg (27-33) 10/21/24 22:12 MCHC 34.1 g/dL (30-55) 10/21/24 22:12 RDW 12.8 % (12.1-15.1) 10/21/24 22:12 Plt Count 236 10^3/cmm (157-399) 10/21/24 22:12 MPV 10.5 fL (7.4-10.4) H 10/21/24 22:12 Neut % (Auto) 52.5 % 10/21/24 22:12 Lymph % (Auto) 37.1 % 10/21/24 22:12 [place] % (Auto) 6.2 % 10/21/24 22:12 Eos % (Auto) 3.3 % 10/21/24 22:12 Baso % (Auto) 0.7 % 10/21/24 22:12 Neut # (Auto) 5.19 10^3/uL (1.8-7.7) 10/21/24 22:12 Lymph # (Auto) 3.7 10^3/uL (0.8-4.8) 10/21/24 22:12 [place] # (Auto) 0.6 10^3/uL (0.2-0.9) 10/21/24 22:12 Eos # (Auto) 0.3 10^3/uL (0.0-0.8) 10/21/24 22:12 Baso # (Auto) 0.1 10^3/uL (0.0-0.1) 10/21/24 22:12 Nucleated RBC % (auto) 0 % 10/21/24 22:12 Nucleated RBCs # 0.0 /100WBC 10/21/24 22:12 PT 13.30 SECONDS (12.1-14.9) 10/21/24 22:12 INR 0.95 (0.8-1.2) 10/21/24 22:12 APTT 27.3 SECONDS (23.9-36.7) 10/21/24 22:12 Sodium 139 mmol/L (136-145) 10/21/24 22:12 Potassium 3.9 mmol/L (3.5-5.1) 10/21/24 22:12 Chloride 103 mmol/L (98-107) 10/21/24 22:12 Carbon Dioxide 26 mmol/L (22-29) 10/21/24 22:12 Anion Gap 13.9 (5-19) 10/21/24 22:12 BUN 9 mg/dL (6-20) 10/21/24 22:12 Creatinine 0.8 mg/dL (0.7-1.2) 10/21/24 22:12 GFR Calculation 112.8 mL/min (90-130) 10/21/24 22:12 Glucose 98 mg/dL (65-115) 10/21/24 22:12 POC Glucose 98 mg/dL (70-110) 10/21/24 22:08 Estimat Average Glucose 111 10/21/24 22:12 Hemoglobin A1c 5.5 % (4.0-6.0) 10/21/24 22:12 Calculated Osmolality 287 mOsm/kg (285-295) 10/21/24 22:12 Calcium 8.8 mg/dL (8.5-10.5) 10/21/24 22:12 Total Bilirubin 0.3 mg/dL (0.15-1.2) 10/21/24 22:12 AST 15 U/L (0-40) 10/21/24 22:12 ALT 13 U/L (0-41) 10/21/24 22:12 Alkaline Phosphatase 104 U/L (40-130) 10/21/24 22:12 Total Protein 6.7 g/dL (6.6-8.7) 10/21/24 22:12 Albumin 4.1 g/dL (3.5-5.2) 10/21/24 22:12 Globulin 2.6 g/dL (1.3-4.6) 10/21/24 22:12 Triglycerides 75 mg/dL (0-150) 10/21/24 22:12 Cholesterol 134 mg/dL (0-200) 10/21/24 22:12 LDL Cholesterol, Calc 81 mg/dL (50-129) 10/21/24 22: HDL Cholesterol 38 mg/dL (60-100) L 10/21/24 22:12 LDL/HDL Ratio 2.13 RATIO (0.00-3.22) 10/21/24 22: Cholesterol/HDL Ratio 3.53 mg/dL (1.0-5.00) 10/21/24 22:12 Urine Color Yellow (Yellow) 10/21/24:47 Urine Appearance Clear (CLEAR) 10/21/24:47 Urine pH 7.5 (5-7) 10/21/24: Ur Specific [place] 1.016 (1.005-1.030) 10/21/24: Urine Protein Negative (Negative) 10/21/24: Urine Glucose (UA) Negative (Normal) 10/21/24: Urine Ketones Negative (Negative) 10/21/24: Urine Blood Negative (Negative) 10/21/24: Urine Nitrate Negative (Negative) 05/13/25 22:47 Urine Bilirubin Negative (Negative) 10/21/24 22:47 Urine Urobilinogen 0.2 mg/dL (Negative) 10/21/24 22:47 Ur Leukocyte Esterase Negative (Negative) 10/21/24 22:47 Urine RBC 0-2 /hpf (0-2) 10/21/24 22:47 Urine WBC 0-5 /hpf (0-5) 10/21/24 22:47 Ur Squamous Epith Cells 0-5 /hpf (0-5) 10/21/24 22:47 Amorphous Sediment Not Reportable 10/21/24 22:47 Urine Bacteria None seen /hpf (NONE) 10/21/24 22:47 Hyaline Casts 0.40 /lpf 10/21/24 22:47 Urine Opiates Screen Positive ng/mL (Negative) H 10/21/24 22:47 Ur Barbiturates Screen Negative ng/mL (Negative) 10/21/24 22:47 Ur Phencyclidine Scrn Negative ng/mL (Negative) 10/21/24 22:47 Ur Amphetamines Screen Negative ng/mL (Negative) 10/21/24 22:47 U Benzodiazepines Scrn Negative ng/mL (Negative) 10/21/24 22:47 Urine Cocaine Screen Negative ng/mL (Negative) 10/21/24 22:47 U Marijuana (THC) Screen Negative ng/mL (Negative) 10/21/24 22:47 Ethyl Alcohol < 10 mg/dL (0-10) 10/21/24 22:12 XR interpretation done by ED provider, pending radiology final review EKG Data EKG 1: Interpretation: sr, lvh, undetermined axis ?right, no st elevation, qtc 388, rate 75 Computer generated interpretation: sr with svt Discharge Plan Discharge Patient Disposition: Placed in Observation Admit Provider: Cornelia Bertrand Clinical Impression: Transient cerebral ischemia Qualifiers: Transient cerebral ischemia type: carotid artery syndrome (hemispheric) Q ualified Code(s): G45.1 - Carotid artery syndrome (hemispheric) Coding Level of Care Code ED Second [employer] for [facility] Evangelista
--- NOTE | 2024-10-21 23:26 | P.HP_ITS ---
Providers/Chief Complaint 2 Admitting Physician: Cornelia Bertrand MD Chief Complaint: Left Arm Tingling\Left Leg Numb History of Present Illness Luis Leach is a 29 year old male w/a hx of a recent panic attack in 09/2024, current smoker who vapes at times as well, who drove himself to the ED on 10/21/2024 w/ complaints of L. hand numbness and tingling as well as L. leg numbness. The patient states that he noticed that earlier in the afternoon around 2pm, he noticed L. hand numbness and tingling sensation that lasted for about an hour before it resolved. This evening around 7pm, while sitting and watching TV, he started feeling L. arm numbness & tingling and subsequent L. leg numbness, despite changing positions while sitting and constantly moving the L. arm and leg. He then noticed that he felt dizzy while reading in addition to blurry vision. He dropped his phone and when he bent down to pick it up, he almost fell on his head. He then called his father figure who just had an [place] at age 45, who recommended that he go to the hospital. In addition to the aforementioned symptoms, he endorses, light headedness, SOB, fatigue, left arm weakness. He endorses that he has had intermittent bifrontal headaches for the last 2 days, including this morning, but it resolved before he started to experience symptoms. He denies f/c, CP, palpitations, syncope. He also endorses constipation, insomnia and back pain. He acknowledges like on 10/08/2024, that he is under a lot of stress in his personal relationship. He denies SI or HI. In the ED, per the PA who signed him out, the patient had an NIHSS of 4-5, so code stroke was activated. His CT head and CTA head and neck showed no acute intracranial findings, no major intracranial artery aneurysm, stenosis or occlusion. His CXR also showed no acute findings. His UA was negative. His Utox was positive for opiates, but he was prescribed Mclean approximately 2 weeks prior. The Neurologist on-call was consulted, who recommended admission for observation and an MRI to evaluate for stroke. He was given a full dose of aspirin, 25mg IM phenergan, 1L NS bolus, Toradol 10mg IVP x 1 and Benadryl 25mg IVP x 1 and admitted. Review of Systems 2 Const: Reports: change in appetite (poor, due to stress. ); Denies: fever(s), chills, malaise or diaphoresis Eyes: Reports: blurry vision ENMT: Reports: other (no dysphagia); Denies: odynophagia, ear or mastoid pain, ear discharge, nasal discharge or nasal congestion Card: Denies: chest pain or palpitations Resp: Reports: dyspnea; Denies: productive cough or wheezing GI: Reports: constipation; Denies: abdominal pain, nausea, vomiting, hematochezia or melena : Denies: difficulty urinating, dysuria, urinary frequency, urinary urgency or hematuria Musc: Reports: other (back pain) Skin/Breast: Denies: rash or new lesions Neuro: Reports: numbness in extremities, weakness in extremities (L. arm) and dizziness Psych: Reports: anxiety; Denies: depression, suicidal ideation or homicidal ideation Endo: Reports: heat intolerance; Denies: cold intolerance Matt/Lymph: Denies: easy bruising or easy bleeding All/Imm: Denies: food intolerance Medications/Allergies Home Medications ?Medication ?Instructions ?Recorded ?Confirmed ?Last Taken ?Type methocarbamol 750 mg tablet 750 mg PO Q8H PRN back radha n #10 10/13/22 10/13/22 Unknown Rx tabs hydrocodone 5 mg-acetaminophen 325 1 tab PO Q6H PRN pa in #14 tabs 05/03/24 Unknown Rx mg tablet propranolol 20 mg tablet 20 mg PO Q8H #60 tabs Unknown Rx Allergies Allergy/AdvReac Type Severity Reaction Status Date / Time amoxicillin Allergy Unknown Verified 10/08/24 01:30 Penicillins Allergy Unknown Verified 10/08/24 01:30 tramadol Allergy ALGY-Rash Verified 10/08/24 01:30 PFSH Acute 2 PFSH: Surgical History (Updated 10/22/24 @ 00:30 by Cornelia Bertrand MD) H/O local excision of skin lesion birthmark removed at the L. parietal lobe, above his L. ear. History of tonsillectomy and adenoidectomy H/O knee surgery L. knee surgery due to removal of a bone spur Family History (Updated 10/22/24 @ 00:26 by Cornelia Bertrand MD) Mother Heart disease Hypertension Social History (Updated 10/22/24 @ 00:34 by Cornelia Bertrand MD) Smoking and tobacco/nicotine status: current every day tobacco/nicotine user cigarettes Packs smoked per day: 1 Years cigarettes smoked: 10 [ Other cigarette details: Also vapes. ] Alcohol intake: never Substance/Drug Use: current Substance/Drug use type: Marijuana Other substance/drug use details: once every few months. Vitals/I&O/Wt Last Vital Signs Temp 98.0 F 10/21/24 21:43 Pulse 75 10/21/24 22:34 Resp 14 10/21/24 22:34 BP 116/71 10/21/24 22:34 Pulse Ox 98 10/21/24 22:34 O2 Del Method Room Air 10/21/24 21:43 10/21/24 10/21/24 10/22/24 14:59 22:59 06:59 Intake Total 0 / 0 Balance 0 / 0 Weight last 48 hrs Weight 68.946 kg Physical Exam 2 Const: GENERAL APPEARANCE: cooperative and comfortable; not in distress ORIENTATION/CONSCIOUSNESS: Yes awake, Yes oriented to person, Yes oriented to place and Yes oriented to time HENMT: HEAD & SCALP: normocephalic and atraumatic NOSE: Normal external nose present EXTERNAL EAR: Yes external ears normal MOUTH: Normal oral and palatal mucosa present THROAT: posterior oropharynx normal Eye: CONJUNCTIVA: Yes conjunctivae normal PUPIL: Yes Equal, round and reactive pupils present EOM: No EOM abnormal Neck/C-Spine: GENERAL: Yes normal visual inspection and Yes trachea midline THYROID: Thyroid normal CAROTIDS: No bruit CERVICAL SPINE: Yes cervical ROM normal Lymph: OTHER: No cervical or supraclavicular LAD. Resp: OTHER: CTAB no w/r/r Cardio: OTHER: RRR, no m/r/g or clicks GI: OTHER: BS+, NT, ND, no reboung tenderness, guarding or rigidity. Extremity: GENERAL: No clubbing, No cyanosis and No edema Neuro: CRANIAL NERVES: Yes CN normal except as noted SENSORY EXAM: Yes sensory level loss detected OTHER: mildly decreased sensation to touch in the L. lower extremity. L. LE weakness (4/5) Psych: APPEARANCE: Yes grossly normal ATTITUDE: Yes calm and Yes engaged ACTIVITY/MOTOR BEHAVIOR: Yes appropriate eye contact SPEECH: Yes normal speech MOOD & AFFECT: Yes euthymic mood THOUGHT PROCESS: Normal thought process present THOUGHT CONTENT: Yes Normal thought content present A TTENTION/CONCENTRATION: Yes attention grossly intact MEMORY/COGNITION: Yes memory grossly intact Skin: GENERAL SKIN EXAM: no rashes or lesions noted Data 10/21/24 22:12 10/21/24 22:12 A&P Assessment and plan (1) Transient cerebral ischemia: Plan Luis Leach is a 29 year old male w/a hx of a recent panic attack in 09/2024, current smoker who vapes at times as well, who drove himself to the ED on 10/21/2024 w/ complaints of L. hand numbness and tingling as well as L. leg numbness. #Transient Cerebral Ischemia - Neurology consulted. - f/u A1c, lipids, b12, RPR, TSH/free T4 MRI brain, and TTE that is ordered - Monitor BP, which the patient states has been elevated since his personal challenges. - Counselled the patient against smoking and vaping. - Give 2L NS over 10hrs. #Insomnia: Temazepam x 1 ordered. Will start Trazodone qhs prn. #Constipation: Milk of Magnesia #Tobacco use d/o #Vaping #Occasional THC use: Last ate a gummy a few months ago - Patient declined nicotine patch, so he was encouraged to request for one when he feels the need. DVT ppx: SCDs PDMP PDMP Reviewed: Not Reviewed Attestations 2 Medical Necessity Statement*: The patient needs to be admitted, first for observation, due to concerns for transient ischemic attack. Premature discharge could result in a cerebrovascular accident. Coding Level of Care Code 54420 High Time for a total of 75 minutes, includes reviewing past or interval history, examining/interviewing patient, placing orders, counseling patient/family/other support, updating patient/family/other support, discussing plan of care with staff, communicating with other healthcare providers, documenting encounter and coordinating care Diagnoses Transient cerebral ischemia G45.1 Transient cerebral ischemia type: carotid artery syndrome (hemispheric)
[2024-10-21 23:30] VITALS: BP 115/75; PULSE 83; O2SAT 100
[2024-10-21] MEDS: aspirin 81 mg Chew Tablet 324 MG PO (23:38)
[2024-10-21] MEDS: sodium chloride 0.9% 1,000 ML 999 ML IV (23:39)
[2024-10-21] MEDS: ketorolac 30 mg/mL INJ 10 MG IVP (23:40)
[2024-10-21 23:59] VITALS: BP 143/86; PULSE 81; RESP 16; O2SAT 100
[2024-10-22] VITALS: BP 111/69; PULSE 66; O2SAT 98
[2024-10-22 00:36] LABS: Estmated Average Glucose 111; Hemoglobin A1C 5.5 % (4.0-6.0)
--- NOTE | 2024-10-22 00:37 | MRR_ITS ---
PROCEDURE INFORMATION: Exam: MR Head Without Contrast Exam date and time: 10/22/2024 6:51 AM Age: 29 years old Clinical indication: Weakness, extremity; Left; Additional info: Transient ischemic attack. No history of recent trauma or surgery is provided. TECHNIQUE: Imaging protocol: Magnetic resonance imaging of the head without contrast. 257image(s) are provided. Other technique: Multiplanar, multisequence images are provided. COMPARISON: 1. CT angio headneck* [id number] 10/21/2024 10:[address] head thrombolytic [id number] 10/21/2024 10:[address] head report 02/28/2013. No previous MRI brain is currently available. FINDINGS: Brain: No interval mass effect or layering hemorrhage is appreciated. [place], white matter differentiation appears maintained.The diffusion-weighted images are negative for acute ischemia.Symmetric appearance of the internal auditory canal structures is demonstrated.Symmetric appearance of the optic chiasm is demonstrated along with midline pituitary stalk. Cerebral ventricles: No interval hydrocephalus is appreciated. Bones: No diffuse acute abnormal marrow signal intensity is appreciated. Paranasal sinuses: The included paranasal sinuses appear well-aerated overall. Mastoid air cells: The mastoid air cells appear well-aerated overall. Orbital cavities: Symmetric appearance of the orbital soft tissues is demonstrated. Vasculature: The central vessels appear relatively symmetric overall. Soft tissues: No subcutaneous fluid collections are appreciated. Other findings: There is some motion artifact present. No other significant interval changes are appreciated. MR/MR head wo con* [id number] IMPRESSION: No interval mass effect, evidence of acute ischemia or hydocephalus is demostrated. No significant interval intracranial changes are appreciated.
[2024-10-22 00:38] LABS: Chol HDL Ratio 3.53 mg/dL (1.0-5.00); Cholesterol 134 mg/dL (0-200); HDL Cholesterol 38 mg/dL (60-100); LDL Cholesterol Calculated 81 mg/dL (50-129); LDL HDL Ratio 2.13 RATIO (0.00-3.22); Triglycerides 75 mg/dL (0-150)
--- NOTE | 2024-10-22 00:38 | USCV_ITS ---
Luis Leach Age: 29 Gender: M : 1995 Exam Date: 10/22/2024 02:58 Ordering Phys: Cornelia Bertrand MD Technologist: MICHAEL Exam Location: [facility] [place] Indication: transient ischemic attack with bilateral visual disturbances; history of panic attacks, depression. BP: 111 / 69 HR: 80 Rhythm: Sinus Technical Quality: Good MEASUREMENTS (Male / Female) Normal Values 2D ECHO LV Diastolic Diameter PLAX 4.5 cm 4.2 - 5.9 / 3.9 - 5.3 cm IVS Diastolic Thickness 1.1 cm 0.6 - 1.0 / 0.6 - 0.9 cm IVS Systolic Thickness 1.5 cm LVPW Diastolic Thickness 1.3 cm 0.6 - 1.0 / 0.6 - 0.9 cm LVPW Systolic Thickness 1.6 cm LVOT Diameter 2.0 cm LV Ejection Fraction 2D Teich 66.7 % LV Ejection Fraction MOD 4C 70.4 % LV Ejection Fraction MOD 2C 69.0 % LV Ejection Fraction 2C AL 70.9 % LA Diameter 2.8 cm Aorta at Sinotubular Diameter 2.4 cm IVC Diameter 1.2 cm M-MODE LA Ao Ratio MM 1.3 AV Cusp Separation MM 1.8 cm DOPPLER AV Peak Velocity 145.0 cm/s LVOT Peak Velocity 110.0 cm/s AV Area Cont Eq vti 2.3 cm squared AV Area Cont Eq pk 2.3 cm squared MV Peak Velocity 131.0 cm/s MV Area PHT 3.4 cm squared Mitral E to A Ratio 1.5 TV Peak Velocity 193.0 cm/s TR Peak Velocity 204.0 cm/s TR Peak Gradient 16.6 mmHg TV Peak E Velocity 69.0 cm/s PV Peak Velocity 89.0 cm/s FINDINGS Left Ventricle Left ventricle is normal size. LV systolic function is normal with EF of 60-65%. No regional wall motion abnormalities are seen. Right Ventricle Normal in size and function Right Atrium Normal in size Left Atrium Normal in size Mitral Valve Structurally normal mitral valve. Mild mitral regurgitation Aortic Valve Structurally normal aortic valve. No significant stenosis or regurgitation. Tricuspid Valve Mild tricuspid regurgitation. Insufficient TR jet to calculate RVSP Pulmonic Valve Not well visualized Pericardium Normal Aorta Normal in size IVC Appears to be normal CONCLUSIONS LV systolic function is normal with EF of 60-65% Mild mitral regurgitation Mild tricuspid regurgitation No comparison studies are available. Nelson Garcia MD (Electronically Signed) Final Date: 26 Oct 2024 15:43 S
[2024-10-22 02:03] VITALS: BMI 22.1
[2024-10-22] MEDS: sodium chloride 0.9% 1,000 ML 200 ML IV ×2 (02:09→07:33)
[2024-10-22] MEDS: temazepam 15 mg Capsule PO (02:09)
[2024-10-22 03:08] VITALS: BP 124/79; PULSE 73; O2SAT 100
[2024-10-22 03:54] VITALS: BP 111/68; PULSE 65; RESP 17; TEMP 36.8; O2SAT 99
[2024-10-22 05:51] LABS: Alanine Aminotransferase 11 U/L (0-41); Albumin Level 3.6 g/dL (3.5-5.2); Alkaline Phosphatase 82 U/L (40-130); Anion Gap 14.6 (5-19); Aspartate Amino Transferase 9 U/L (0-40); Blood Urea Nitrogen 8 mg/dL (6-20); Calcium 8.5 mg/dL (8.5-10.5); Carbon Dioxide 22 mmol/L (22-29); Chloride 108 mmol/L (98-107); Creatinine Clr Calc Pharmacy 181.0137; Glomerular Filtration Rate 157.1 mL/min (90-130); Glucose 95 mg/dL (65-115); Magnesium 1.7 mg/dL (1.7-2.3); Osmolality Calculated 290 mOsm/kg (285-295); Potassium 3.6 mmol/L (3.5-5.1); Sodium 141 mmol/L (136-145); Thyroid Stimulating Hormone 1.28 uIU/mL (0.27-4.20); Total Bilirubin 0.3 mg/dL (0.15-1.2); Total Protein 5.6 g/dL (6.6-8.7)
[2024-10-22 06:00] VITALS: PULSE 73
[2024-10-22 06:00] LABS: Vitamin B12 417 pg/mL (232-1245)
[2024-10-22] MEDS: magnesium hydroxide 30 mL UDC PO (07:34)
--- NOTE | 2024-10-22 07:48 | P.CONIM_ITS ---
Providers/Reason For Consult 2 Consulting Physician/Specialty*: Jameel Norman MD neurology and epilepsy Reason for Consult*: Acute care/code stroke emergency department room #12 Attending Physician: Richard Wick MD History of Present Illness History of Present Illness Luis Leach is a 29 year old male who reported that on 10/21/2024 at approximately 2 PM he experienced numbness in the fingers of his left hand up to his wrist/forearm region which later progressed to weakness in the left arm and numbness over the left lateral leg. The patient presented to the [facility] emergency department on 10/21/2024 around 10 PM on 10/21/2024. Code stroke/stroke alert was initiated at 10:07 PM on 10/21/2024. Stat noncontrast head CT and CT angiogram of the head and neck were obtained and were unrevealing. Point of contact glucose Accu-Chek 98. The patient was admitted to observation for evaluation. I recommended patient undergo head MRI as well as lipid profile and consider starting low-dose aspirin. On 10/22/2024 neurological examination was essentially unrevealing except patient reporting numbness in the fingers of his left hand up to his wrist/distal forearm. NIH stroke score =1 (left hand numbness) Drug allergies: Amoxicillin type reaction unknown Penicillins type reaction unknown Tramadol which resulted in a rash Current medications: Hydrocodone/acetaminophen 1 p.o. every 6 hours as needed for pain Methocarbamol 750 mg p.o. every 8 hours as needed for back pain Propranolol 20 mg p.o. every 8 hours Past medical history: Back pain Habits: The patient smokes 1 pack/day. He denied other drug use. 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 Social history: The patient lives alone Review of Systems 2 General: Reports: 10 or more systems reviewed and unremarkable except in HPI and below Medications/Allergies Home Medications ?Medication ?Instructions ?Recorded ?Confirmed ?Last Taken ?Type methocarbamol 750 mg tablet 750 mg PO Q8H PRN back radha n #10 10/13/22 10/13/22 Unknown Rx tabs hydrocodone 5 mg-acetaminophen 325 1 tab PO Q6H PRN pa in #14 tabs 05/03/24 Unknown Rx mg tablet propranolol 20 mg tablet 20 mg PO Q8H #60 tabs Unknown Rx Allergies Allergy/AdvReac Type Severity Reaction Status Date / Time amoxicillin Allergy Unknown Verified 10/08/24 01:30 Penicillins Allergy Unknown Verified 10/08/24 01:30 tramadol Allergy ALGY-Rash Verified 10/08/24 01:30 Current Medications Generic Name Dose Route Start Last Admin Trade Name Diane PRN Reason Stop Dose Admin Sodium Chloride 1,000 mls @ 200 mls/hr 10/22/24 00:45 10/22/24 07:33 Sodium Chloride 0.9% IV 10/22/24 10:44 200 mls/hr .Q5H DEANN Administration Magnesium Hydroxide 30 ml 10/22/24 09:00 10/22/24 07:34 Magnesium Hydroxide 30 Ml Udc PO 30 ml DAILY DEANN Administration Protocol PFSH Acute 2 PFSH: Surgical History (Updated 10/22/24 @ 00:30 by Cornelia Bertrand MD) H/O local excision of skin lesion birthmark removed at the L. parietal lobe, above his L. ear. History of tonsillectomy and adenoidectomy H/O knee surgery L. knee surgery due to removal of a bone spur Family History (Updated 10/22/24 @ 00:26 by Cornelia Bertrand MD) Mother Heart disease Hypertension Social History (Updated 10/22/24 @ 00:34 by Cornelia Bertrand MD) Smoking and tobacco/nicotine status: current every day tobacco/nicotine user cigarettes Packs smoked per day: 1 Years cigarettes smoked: 10 [ Other cigarette details: Also vapes. ] Alcohol intake: never Substance/Drug Use: current Substance/Drug use type: Marijuana Other substance/drug use details: once every few months. Vitals/I&O/Wt Last Vital Signs Temp 98.2 F 10/22/24 03:54 Pulse 73 10/22/24 06:00 Resp 17 10/22/24 03:54 BP 111/68 10/22/24 03:54 Pulse Ox 99 10/22/24 03:54 O2 Del Method Room Air 10/22/24 03:54 10/21/24 10/22/24 10/22/24 22:59 06:59 14:59 Intake Total 0 / 0 1000 / 1000 1000 / 1000 Balance 0 / 0 1000 / 1000 1000 / 1000 Weight last 48 hrs Weight 154 lb Weight 154 lb Weight 152 lb Physical Exam 2 Narrative: The patient is alert he is oriented x 3. Speech fluent. Head normocephalic. Neck supple. Cranial nerves II through XII intact pupils 4 mm round reactive to light and accommodation. Extraocular movements intact. Motor testing 5/5 bilaterally. There was no drift. There was no ataxia. Sensory examination revealed decreased sensation left fingers and left hand. Throat clear. Lungs clear. Heart regular rhythm and rate. Extremities were negative for cyanosis. Data 10/21/24 22:12 10/22/24 04:42 A&P Assessment and plan (1) Transient cerebral ischemia: Impression: 1. Left-sided numbness arm and leg with reported weakness, markedly improved with residual left hand and finger numbness up to the wrist/distal left forearm with negative CT angiogram of the head and neck and noncontrast head CT 10/21/2024 2. Nicotine dependence Plan: 1. Follow-up results of head MRI performed on 10/22/2024 2. Recommend obtaining cardiac evaluation and 2D echocardiogram since patient reported some occasional intermittent chest discomfort 3. Consider performing hypercoagulable lab to assess for a hypercoagulable state 4. If head MRI is unrevealing, patient stable from neurological standpoint for discharge planning 5. Although patient's current clinical symptoms of unclear etiology recommend following NIH stroke protocol and starting aspirin 325 mg p.o. every morning and lipid-lowering agent at bedtime if no contraindications 6. Stroke education/stroke panel for patient 7. Occupational Therapy, physical therapy speech therapy evaluation 8. Vital signs and neurochecks per NIH stroke protocol PDMP PDMP Reviewed: Not Reviewed Consult Attestations 2 Medical Necessity Statement: The patient was evaluated for acute care/stroke alert emergency department room #12 Coding Level of Care Code 69993 Diagnoses Transient cerebral ischemia G45.1 Transient cerebral ischemia type: carotid artery syndrome (hemispheric)
--- NOTE | 2024-10-22 08:31 | P.DS_ITS ---
Discharge Providers Date of Admission: 10/22/24 00:00 Date of Discharge: October 22, 2024 Attending Provider at Admission: Cornelia Bertrand MD Attending Provider at Discharge: Richard Wick MD Consults: Neurology: Dr. Norman Diagnoses at Discharge Discharge Diagnosis (1) Transient cerebral ischemia: Status: Acute Qualifiers: Transient cerebral ischemia type: carotid artery syndrome (hemispheric) Qualified Code(s): G45.1 - Carotid artery syndrome (hemispheric) Reason for Visit Reason for Visit: Left Arm Tingling\Left Leg Numb Brief History: Luis Leach is a 29 year old male w/a hx of a recent panic attack in 09/2024, current smoker who vapes at times as well, who drove himself to the ED on 10/21/2024 w/ complaints of L. hand numbness and tingling as well as L. leg numbness. The patient states that he noticed that earlier in the afternoon around 2pm, he noticed L. hand numbness and tingling sensation that lasted for about an hour before it resolved. This evening around 7pm, while sitting and watching TV, he started feeling L. arm numbness & tingling and subsequent L. leg numbness, despite changing positions while sitting and constantly moving the L. arm and leg. He then noticed that he felt dizzy while reading in addition to blurry vision. He dropped his phone and when he bent down to pick it up, he almost fell on his head. He then called his father figure who just had an SC at age 45, who recommended that he go to the hospital. In addition to the aforementioned symptoms, he endorses, light headedness, SOB, fatigue, left arm weakness. He endorses that he has had intermittent bifrontal headaches for the last 2 days, including this morning, but it resolved before he started to experience symptoms. He denies f/c, CP, palpitations, syncope. He also endorses constipation, insomnia and back pain. He acknowledges like on 10/08/2024, that he is under a lot of stress in his personal relationship. He denies SI or HI. In the ED, per the PA who signed him out, the patient had an NIHSS of 4-5, so code stroke was activated. His CT head and CTA head and neck showed no acute intracranial findings, no major intracranial artery aneurysm, stenosis or occlusion. His CXR also showed no acute findings. His UA was negative. His Utox was positive for opiates, but he was prescribed [place] approximately 2 weeks mamadou or. The Neurologist on-call was consulted, who recommended admission for observation and an MRI to evaluate for stroke. He was given a full dose of aspirin, 25mg IM phenergan, 1L NS bolus, Toradol 10mg IVP x 1 and Benadryl 25mg IVP x 1 and admitted. Hospital Course Hospital Course Patient was admitted to the hospital as per neurology recommendations further workup. MRI was done which was negative for acute stroke. He did not have any further episode of left arm weakness. ESR and CRP were checked which were found to be normal. ZEYNEP panel has been sent out. Patient worked well with physical therapy. He continued to have difficulty in swallowing for which speech evaluation was done. Echocardiogram is pending. He has been discharged in hemodynamically stable condition on aspirin 325 mg daily, atorvastatin 20 mg nightly as per recommendations from neurology team with advised to follow-up with PCP in 1 week, neurology team in 2 weeks. Physical Exam Const: GENERAL APPEARANCE: cooperative and comfortable; not in distress ORIENTATION/CONSCIOUSNESS: Yes awake, Yes oriented to person, Yes oriented to place and Yes oriented to time HENMT: COMMON NORMALS: normocephalic, atraumatic, external ears normal and Normal external nose present HEAD & SCALP: normocephalic and atraumatic NOSE: Normal external nose present EXTERNAL EAR: Yes external ears normal MOUTH: Normal oral and palatal mucosa present THROAT: posterior oropharynx normal Eye: COMMON NORMALS: Equal, round and reactive pupils present and conjunctivae normal CONJUNCTIVA: Yes conjunctivae normal PUPIL: Yes Equal, round and reactive pupils present EOM: No EOM abnormal Neck/C-Spine: COMMON NORMALS: Thyroid normal GENERAL: Yes normal visual inspection and Yes trachea midline THYROID: Thyroid normal CAROTIDS: No bruit CERVICAL SPINE: Yes cervical ROM normal Lymph: OTHER: No cervical or supraclavicular LAD. Resp: OTHER: CTAB no w/r/r Cardio: OTHER: RRR, no m/r/g or clicks GI: OTHER: BS+, NT, ND, no reboung tenderness, guarding or rigidity. Extremity: GENERAL: No clubbing, No cyanosis and No edema Neuro: SENSORIUM/ORIENTATION: Yes oriented to person, Yes oriented to place and Yes oriented to time CRANIAL NERVES: Yes CN normal except as noted SENSORY EXAM: Yes sensory level loss detected OTHER: mildly decreased sensation to touch in the L. lower extremity. L. LE weakness (4/5) Psych: COMMON NORMALS: Normal thought process present and speech normal APPEARANCE: Yes grossly normal ATTITUDE: Yes calm and Yes engaged ACTIVITY/MOTOR BEHAVIOR: Yes appropriate eye contact SPEECH: Yes normal speech MOOD & AFFECT: Yes euthymic mood THOUGHT PROCESS: Normal thought process present THOUGHT CONTENT: Yes Normal thought content present ATTENTION/CONCENTRATION: Yes attention grossly intact MEMORY/COGNITION: Yes memory grossly intact Skin: COMMON NORMALS: no rashes or lesions noted GENERAL SKIN EXAM: no rashes or lesions noted Discharge Data Studies Completed and Pending Completed Studies During Hospitalization Category Date Time Status CT angio headneck* [id number]/[id number] Stat Cat Scan 10/21/24 22:[address] head thrombolytic [id number] Stat Cat Scan 10/21/24 22:07 Completed XR chest 1V portable [id number] Stat Exams 10/21/24 22:07 Completed MR head wo con* [id number] Stat MRI 10/22/24 00:37 Completed Pending at discharge Category Date Time Status Basic Metabolic Panel AM LABS Lab 10/23/24 04:00 Ordered Basic Metabolic Panel AM LABS Lab 10/24/24 04:00 Ordered Basic Metabolic Panel AM LABS Lab 10/25/24 04:00 Ordered CRP [C Reactive Protein] Routine Lab 10/22/24 08:29 Ordered ESR [Erythrocyte Sedimentation Rate] Routine Lab 10/22/24 08:29 Ordered Hemoglobin A1C AM LABS Lab 10/23/24 04:00 Ordered Lipid Panel AM LABS Lab 10/23/24 04:00 Ordered Magnesium AM LABS Lab 10/23/24 04:00 Ordered [facility] ZEYNEP Profile Routine Lab 10/22/24 08:30 Ordered Phosphorus AM LABS Lab 10/23/24 04:00 Ordered Phosphorus AM LABS Lab 10/24/24 04:00 Ordered RPR with Reflex to Titer Routine Lab 10/22/24 04:42 Received Thyroid Stimulating Hormone AM LABS Lab 10/23/24 04:00 Ordered CV. echo complete* [id number] Stat Ultrasound 10/22/24 00:38 Taken Radiology Impressions Chest X-Ray 10/21/24 22:07 IMPRESSION: No acute findings. Head CT 10/21/24 22:07 IMPRESSION: No acute intracranial findings. ASSESSMENT: ASPECTS ([place]isha Stroke Program Early CT Score) is 10. ADDENDUM: 10/21/242246 The patient's physician, Dr. Mensah was informed by phone by Dr. Arnold about the findings and recommendations on 10/21/2024 at 10:46 PM CDT. The ordering physician verbalized understanding. Head/Neck CTA 10/21/24 22:07 IMPRESSION: 1. No acute intracranial findings. 2. No major intracranial artery aneurysm, stenosis or occlusion. 3. Intracranial venous sinuses are patent. IMPRESSION: No major neck artery laceration, dissection, stenosis, aneurysm, pseudoaneurysm or occlusion. REFERENCES: NASCET CRITERIA. The degree of stenosis in the cervical segment of the internal carotid artery is based on NASCET criteria. Normal is no stenosis. Mild is less than 50% stenosis. Moderate is 50-69% stenosis. Severe is 70% to 99% stenosis. Total occlusion is no detectable patent lumen. ADDENDUM: 10/21/242246 The patient's physician, Dr. Mensah was informed by phone by Dr. Arnold about the findings and recommendations on 10/21/2024 at 10:46 PM CDT. The ordering physician verbalized understanding. Head MRI 10/22/24 00:37 IMPRESSION: No interval mass effect, evidence of acute ischemia or hydocephalus is demostrated. No significant interval intracranial changes are appreciated. Laboratory Results WBC 9.89 10^3/uL (3.29-11.43) 10/21/24 22:12 RBC 4.94 10^6/uL (3.85-5.65) 10/21/24 22:12 Hgb 15.50 g/dL (11.27-16.99) 10/21/24 22:12 Hct 45.5 % (37-53) 10/21/24 22:12 MCV 92.1 fl (82-101) 10/21/24 22:12 MCH 31.4 pg (27-33) 10/21/24 22:12 MCHC 34.1 g/dL (30-55) 10/21/24 22:12 RDW 12.8 % (12.1-15.1) 10/21/24 22:12 Plt Count 236 10^3/cmm (157-399) 10/21/24 22:12 MPV 10.5 fL (7.4-10.4) H 10/21/24 22:12 Neut % (Auto) 52.5 % 10/21/24 22:12 Lymph % (Auto) 37.1 % 10/21/24 22:12 Sharp % (Auto) 6.2 % 10/21/24 22:12 Eos % (Auto) 3.3 % 10/21/24 22:12 Baso % (Auto) 0.7 % 10/21/24 22:12 Neut # (Auto) 5.19 10^3/uL (1.8-7.7) 10/21/24 22:12 Lymph # (Auto) 3.7 10^3/uL (0.8-4.8) 10/21/24 22:12 Sharp # (Auto) 0.6 10^3/uL (0.2-0.9) 10/21/24 22:12 Eos # (Auto) 0.3 10^3/uL (0.0-0.8) 10/21/24 22:12 Baso # (Auto) 0.1 10^3/uL (0.0-0.1) 10/21/24 22:12 Nucleated RBC % (auto) 0 % 10/21/24 22:12 Nucleated RBCs # 0.0 /100WBC 10/21/24 22:12 PT 13.30 SECONDS (12.1-14.9) 10/21/24 22:12 INR 0.95 (0.8-1.2) 10/21/24 22:12 APTT 27.3 SECONDS (23.9-36.7) 10/21/24 22:12 Sodium 141 mmol/L (136-145) 10/22/24 04:42 Potassium 3.6 mmol/L (3.5-5.1) 10/22/24 04:42 Chloride 108 mmol/L (98-107) H 10/22/24 04:42 Carbon Dioxide 22 mmol/L (22-29) 10/22/24 04:42 Anion Gap 14.6 (5-19) 10/22/24 04:42 BUN 8 mg/dL (6-20) 10/22/24 04:42 Creatinine 0.6 mg/dL (0.7-1.2) L 10/22/24 04:42 GFR Calculation 157.1 mL/min (90-130) H 10/22/24 04:42 Glucose 95 mg/dL (65-115) 10/22/24 04:42 POC Glucose 98 mg/dL (70-110) 10/21/24 22:08 Estimat Average Glucose 111 10/21/24 22:12 Hemoglobin A1c 5.5 % (4.0-6.0) 10/21/24 22:12 Calculated Osmolality 290 mOsm/kg (285-295) 10/22/24 04:42 Calcium 8.5 mg/dL (8.5-10.5) 10/22/24 04:42 Magnesium 1.7 mg/dL (1.7-2.3) 10/22/24 04:42 Total Bilirubin 0.3 mg/dL (0.15-1.2) 10/22/24 04:42 AST 9 U/L (0-40) 10/22/24 04:42 ALT 11 U/L (0-41) 10/22/24 04:42 Alkaline Phosphatase 82 U/L (40-130) 10/22/24 04:42 Total Protein 5.6 g/dL (6.6-8.7) L 10/22/24 04:42 Albumin 3.6 g/dL (3.5-5.2) 10/22/24 04:42 Globulin 2.0 g/dL (1.3-4.6) 10/22/24 04:42 Triglycerides 75 mg/dL (0-150) 10/21/24 22:12 Cholesterol 134 mg/dL (0-200) 10/21/24 22:12 LDL Cholesterol, Calc 81 mg/dL (50-129) 10/21/24 22:12 HDL Cholesterol 38 mg/dL (60-100) L 10/21/24 22:12 LDL/HDL Ratio 2.13 RATIO (0.00-3.22) 10/21/24 22:12 Cholesterol/HDL Ratio 3.53 mg/dL (1.0-5.00) 10/21/24 22:12 Vitamin B12 417 pg/mL (232-1245) 10/22/24 04:42 TSH 1.28 uIU/mL (0.27-4.20) 10/22/24 04:42 Urine Color Yellow (Yellow) 10/21/24 22:47 Urine Appearance Clear (CLEAR) 10/21/24 22: Urine pH 7.5 (5-7) 10/21/24 22:47 Ur Specific [place] 1.016 (1.005-1.030) 10/21/24 22:47 Urine Protein Negative (Negative) 10/21/24 22:47 Urine Glucose (UA) Negative (Normal) 10/21/24 22:47 Urine Ketones Negative (Negative) 10/21/24 22:47 Urine Blood Negative (Negative) 10/21/24 22: Urine Nitrate Negative (Negative) 10/21/24 22: Urine Bilirubin Negative (Negative) 10/21/24 22: Urine Urobilinogen 0.2 mg/dL (Negative) 10/21/24 22:47 Ur Leukocyte Esterase Negative (Negative) 10/21/24 22:47 Urine RBC 0-2 /hpf (0-2) 10/21/24 22:47 Urine WBC 0-5 /hpf (0-5) 10/21/24 22:47 Ur Squamous Epith Cells 0-5 /hpf (0-5) 10/21/24 22:47 Amorphous Sediment Not Reportable 10/21/24 22:47 Urine Bacteria None seen /hpf (NONE) 10/21/24 22:47 Hyaline Casts 0.40 /lpf 10/21/24 22:47 Urine Opiates Screen Positive ng/mL (Negative) H 10/21/24 22:47 Ur Barbiturates Screen Negative ng/mL (Negative) 10/21/24 22:47 Ur Phencyclidine Scrn Negative ng/mL (Negative) 10/21/24 22:47 Ur Amphetamines Screen Negative ng/mL (Negative) 10/21/24 22:47 U Benzodiazepines Scrn Negative ng/mL (Negative) 10/21/24 22:47 Urine Cocaine Screen Negative ng/mL (Negative) 10/21/24 22:47 U Marijuana (THC) Screen Negative ng/mL (Negative) 10/21/24 22:47 Ethyl Alcohol < 10 mg/dL (0-10) 10/21/24 22:12 Vitals Last Vital Signs Temp 98.2 F 10/22/24 03:54 Pulse 73 10/22/24 06:00 Resp 17 10/22/24 03:54 BP 111/68 10/22/24 03:54 Pulse Ox 99 10/22/24 03:54 O2 Del Method Room Air 10/22/24 03:54 Discharge Plan Discharge Patient Disposition: Home Condition: Stable Prescriptions: New atorvastatin 40 mg Tablet 20 mg PO BEDTIME Qty: 15 0RF aspirin 325 mg Tablet,Delayed Release (Dr/Ec) 325 mg PO DAILY Qty: 30 0RF Continued propranolol 20 mg tablet 20 mg PO BID Discharge Orders: Discharge Order (Routine); Ordered 10/22/24 Ordered By: Richard Wick Referrals: Jameel Norman MD [Physician, Neurology] - 03/19/25 1:00 pm Referral Note: Jeisca Price FNP [Referring, Primary Care Provider] - 10/29/24 9:00 am Discharge Diet: Cardiac Discharge Activity: Resume usual activity and Increase activity as tolerated Patient Instructions: Aspirin (By mouth), Atorvastatin (By mouth), Transient Ischemic Attack (GEN), Opioid Safety, Stroke Stoplight Discharge Attestations Time Spent in Discharge Care*: greater than 30 min Specific Discharge Activities: educating patient, discussing with pcp/other providers, discussing with residential case manager/social workers/dc planners, documenting /other paperwork and evaluating patient/reviewing data Status at Discharge: Cognitive status at discharge: cognitively intact , Behavioral status at discharge: cooperative , Functional status at discharge: independent ambulation , Overall status at discharge: patient is back to baseline Quality Metrics Clinical Quality Measures [ No reported AMI, CVA or VTE this stay] Coding Level of Care Code 79117 Total time (in minutes) for Discharge: 60 Diagnoses Transient cerebral ischemia G45.1 Transient cerebral ischemia type: carotid artery syndrome (hemispheric)
--- NOTE | 2024-10-22 08:36 | PC.NURSE ---
Addendum entered by Merlyn Barrera LPN 10/22/24 16:00: This nurse called Radiology to see who was reading the Echo as it had not been read yet and pt says he does not have a sitter for his child and needs to leave. No answer. This nurse called Dr. Dexter who called to have Echo read promptly. Dr. Dexter returned my call and gave verbal consent for pt to d/c home. Addendum entered by Merlyn Barrera LPN 10/22/24 12:46: Cleared by ST and PT. Still awaiting results of Echo. Pt also states that he has not had a BM in 2 weeks. Milk of Mag given to pt this morning. Dr. Dexter notified. Will call SUKHDEV Erickson in Cardiology to read Echo. Verbal Order given for Mag Citrate. Original Note: D/C pending PT eval and results of Echo.
[2024-10-22 08:59] VITALS: BP 106/69; PULSE 70; RESP 18; TEMP 36.3; O2SAT 98
[2024-10-22 09:16] LABS: Erythrocyte Sedimentation Rate 1 mm/hr (0-10)
[2024-10-22] MEDS: aspirin 325 mg EC Tablet PO (10:10)
--- NOTE | 2024-10-22 11:15 | PC.NURSE ---
health sciences program coordinator rounds- patient was finishing up with Speech Therapy. Afterward, I gave patient stroke education book and we discussed risk factors and ways to reduce risk of stroke. Also educated patient on the importance of getting to the ED fast if symptoms return. Patient states he still has lingering numbness in his left hand and fingers.
[2024-10-22] MEDS: magnesium citrate Btl 296 mL 150 ML PO (13:22)
[2024-10-22 13:31] VITALS: BP 109/65; PULSE 74; RESP 18; TEMP 36.7; O2SAT 97
--- NOTE | 2024-10-22 15:40 | PC.OT ---
OT EVALUATION HELD DUE TO SCHEDULED PATIENT D/C
[2024-10-23 07:39] LABS: Anti-Double Strand DNA AB <1 IU/mL; Jo-1 Antibody <1.0 NEG AI (<1.0 NEG); SM/RNP Antibodies <1.0 NEG AI (<1.0 NEG); SS-B/LA IGG <1.0 NEG AI (<1.0 NEG); Scleroderma Ab(Scl-70) Ab <1.0 NEG AI (<1.0 NEG); Ss-A/Ro Igg <1.0 NEG AI (<1.0 NEG)
[2024-10-23 14:56] LABS: RPR w(Moniotor) w/REFL Titer NON-REACTIVE (NON-REACTIVE)
== END 2024-10-22 16:12 | disposition home or self-care (01) ==
LOC: ER 23:14 → ER IP 10-22 00:52 → MEDSURG 10-22 01:32
PROVIDERS: Admitting Provider Internal Medicine; Emergency Provider Physician Assistant; Visit Provider Student in an Organized Health Care Education/Training Program
DX: G45.1 Carotid artery syndrome (hemispheric) (principal); F17.210 Nicotine dependence, cigarettes, uncomplicated; F17.290 Nicotine dependence, other tobacco product, uncomplicated; F41.0 Panic disorder [episodic paroxysmal anxiety]; K59.00 Constipation, unspecified; G47.00 Insomnia, unspecified
CPT/HCPCS: 36415; 36416; 70450; 70496; 70498; 70551; 71045; 80053; 80061; 80306; 80307; 81001; 82607; 82962; 83036; 83735; 84443; 85025; 85610; 85651; 85730; 86140; 86225; 86235; 86592; 92610; 93005; 93306; 96374; 97110; 99285; G0378; J1885; J7030; J9999